=== PATIENT | female | born 1950 | race American Indian/Alaskan Native ===

== ENCOUNTER 2019-01-12 10:04 | Outpatient (CLI) | payer OTHER ==
--- NOTE | 2019-01-12 12:07 | Ultrasound Report ---
Right mammogram and right breast ultrasound: Recall for right asymmetry. Spot CC and lateral compression imaging demonstrates an area of mild irregular shaped increased density in the central to slightly superior breast. No calcifications and no overtly suspicious characteristics noted. The patient does have a history of prior surgery in this area without interval mammogram since surgery. Ultrasound of the superior breast demonstrates a 4 mm cyst near the nipple but no other evidence of a solid or cystic area is identified and there is no obvious architectural distortion in this region. Impression: Probably benign right breast asymmetry possibly related to surgery. Recommendation: Repeat mammogram in 6 months to confirm stability. BI-RADS CATEGORY: 3 = Probably benign ACR BI-RADS MAMMOGRAPHIC CODES: 0 = Needs additional imaging evaluation; 1 = Negative; 2 = Benign; 3 = Probably benign; 4 = Suspicious; 5 = Malignant; 6 = Known biopsy-proven malignancy COMMENT: 1. Dense breast tissue, i.e., adenosis, fibrocystic changes, etc., may obscure an underlying neoplasm. 2. Approximately 10% of cancers are not detected with mammography. 3. A negative mammography report should not delay biopsy if a clinically suspicious mass is present.
== END 2019-01-12 10:05 | disposition home or self-care (01) ==
LOC: MAMMO 10:04
PROVIDERS: ATTEND Family Medicine
DX: R92.8 Other abnormal and inconclusive findings on diagnostic imaging of breast (principal)
CPT/HCPCS: 77066

== ENCOUNTER 2019-06-13 11:00 | Outpatient (CLI) | payer OTHER ==
--- NOTE | 2019-06-13 11:51 | Mammography Report ---
DIGITAL DIAGNOSTIC MAMMOGRAM WITH CAD, -- 06/13/2019 INDICATION: Six-month follow-up for asymmetry. TECHNIQUE: Digital right mammographic imaging was performed. This examination was interpreted with the benefit of Computer-aided Detection analysis. COMPARISON: 01/12/2019 FINDINGS: Breast Density: The breast is almost entirely fatty. There is no evidence of dominant mass, suspicious calcifications or architectural distortion in the r ight breast. The previously identified upper asymmetry has resolved. IMPRESSION: No mammographic evidence of malignancy. Follow up recommendation: Routine yearly BI-RADS Category 1: Negative. A "normal" or negative report should not discourage follow up or biopsy of a clinically significant f inding. A written summary of these findings will be mailed to the patient. The patient will be entered into a mammography reporting system which will generate a reminder letter for the patient's next appointmen t at the appropriate interval. According to the [employer], yearly mammograms are recommended starting at age 40 and continuing as long as a woman is in good health. Breast MRI is recommended for women with an yann roximately 20-25% or greater lifetime risk of breast cancer, including women with a strong family his tory of breast or ovarian cancer and women who have been treated for Hodgkin's disease. Signer Name: Konstantin Aparicio MD Signed: 06/13/2019 11:46 AM Workstation Name: [id number]
== END 2019-06-13 11:01 | disposition home or self-care (01) ==
LOC: MAMMO 11:00
PROVIDERS: ATTEND Family Medicine
DX: R92.8 Other abnormal and inconclusive findings on diagnostic imaging of breast (principal)

== ENCOUNTER 2021-06-24 11:05 | Outpatient (CLI) | payer OTHER ==
--- NOTE | 2021-06-25 13:13 | Mammography Report ---
DIGITAL SCREENING MAMMOGRAM WITH CAD, 06/24/2021 CLINICAL INFORMATION / INDICATION: Routine screening mammography. SCREENING MAMMOGRAM TECHNIQUE: Digital bilateral 2D mammography was obtained in the craniocaudal and mediolateral obliqu e projections. This examination was interpreted with the benefit of Computer-Aided Detection analysis . COMPARISON: 12/26/2018 FINDINGS: Breast Density: There are scattered areas of fibroglandular density. No dominant mass, suspicious calcifications, or architectural distortion in either breast. Postop change again seen on the left. IMPRESSION: No mammographic evidence of malignancy. Follow up recommendation: Routine yearly BI-RADS Category 2: Benign. A "normal" or negative report should not discourage follow up or biopsy of a clinically significant f inding. A written summary of these findings will be mailed to the patient. The patient will be entered into a mammography reporting system which will generate a reminder letter for the patient's next appointmen t at the appropriate interval. The [employer] recommends yearly mammograms starting at age 40 and continuing as l moses as a woman is in good health. Breast MRI is recommended for women with an approximate 20-25% or greater lifetime risk of breast cancer, including women with a strong family history of breast or ova manasa cancer or who have been treated for Hodgkin's disease. Signer Name: Moses Wilkerson MD Signed: 06/25/2021 1:09 PM Workstation Name: [id number]
== END 2021-06-24 11:06 | disposition home or self-care (01) ==
LOC: MAMMO 11:05
DX: Z12.31 Encounter for screening mammogram for malignant neoplasm of breast (principal)
CPT/HCPCS: 77067